=== PATIENT | female | born 1985 | race Caucasian/White ===

== ENCOUNTER 2017-01-06 06:55 | Day surgery (SDC) | payer BC ==
--- NOTE | ~2017-01-06 | OP ---
Record Of Operation [facility] [address] [place]. [address] NAME: KAREN REDDY : 87 STATUS : REG [facility]#: [id number] AGE: 32 ADM/REG DATE : 01/06/17 MR#: [id number] REPORT SERV DATE: 01/06/17 DICTATED BY: HILL MUSE DATE: 01/06/17 REPORT STATUS : Draft TRANSCRIBED BY: BELTRAN DATE: 01/06/17 DATE OF PROCEDURE: 01/06/2017 SERVICE: Otolaryngology. PREOPERATIVE DIAGNOSIS: Chronic tonsillitis. POSTOPERATIVE DIAGNOSIS: Chronic tonsillitis. PROCEDURE: Tonsillectomy. ANESTHESIA: General endotracheal anesthesia. COMPLICATIONS: None. SPECIMEN: 1. Left tonsil. 2. Right tonsil. FINDINGS: The patient had 3+ cryptic tonsils. STATEMENT OF MEDICAL NECESSITY: This is a 32-year-old female with history of recurrent acute strep tonsillitis and chronic tonsillitis. Recommended tonsillectomy. STATEMENT OF OPERATION: The patient was brought to the operating room in supine position, transferred over to the operating table. All pressure points were padded, and general endotracheal anesthesia was established. The patient's neck was placed in slight extension using a shoulder roll. Bacitracin ointment was applied to the lips and Afrin instilled in each nostril. A McIvor mouth gag was inserted and locked for retraction tongue and oral cavity. A red rubber catheter was passed through the right naris, brought out of the mouth and locked for the soft palate and uvula. A total of 4 mL of 0.25% plain Marcaine were injected in the peritonsillar space and the parapharyngeal muscles bilaterally. The left tonsil was removed first with the suction cautery followed by the right tonsil. Hemostasis was obtained with suction cautery. The nasopharynx and pharynx were irrigated thoroughly with warm saline. The stomach was suctioned clear of blood and fluid with an orogastric tube. The red rubber catheter and McIvor were removed. The patient was turned back over to Anesthesia, where she awoke, was extubated, and transferred to the PACU in stable condition. PS/BELTRAN Hill Muse MD / [id number] Record Of Operation [place] [id number] [address] NAME: KAREN REDDY : 87 STATUS : REG [facility] PAT#: [id number] AGE: 32 ADM/REG DATE : 01/06/17 MR#: [id number] REPORT SERV DATE: 01/06/17 DICTATED BY: HILL MUSE DATE: 01/06/17 REPORT STATUS : Draft TRANSCRIBED BY: BELTRAN DATE: 01/06/17 CC: MD KENZIE Madrigal MATTHEW J.
[~2017-01-06 06:55] MED LIST: CYMBALTA30 PO; PT DENIES HOME MEDS; [UNRECOGNIZED DRUG - OTHER] PO
[2017-01-06 07:25] LABS: BASOPHILS 0.3 %; BASOPHILS ABSOLUTE 0.02 10/3/uL (0.0-0.16); EOSINOPHILS 6.7 %; EOSINOPHILS ABSOLUTE 0.44 10/3/uL (0.0-0.53); HEMATOCRIT 40.3 % (36.0-48.0); HEMOGLOBIN 14.1 g/dL (12.0-16.0); IMMATURE GRANULOCYTES 0.2 %; IMMATURE GRANULOCYTES ABSOLUTE 0.01 10/3/uL (0.0-0.11); LYMPHOCYTES 36.7 %; LYMPHOCYTES ABSOLUTE 2.41 10/3/uL (0.67-4.30); MANUAL DIFF NO %; MEAN CORPUSCULAR VOLUME 88.6 fL (80-100); MONOCYTES 4.7 %; MONOCYTES ABSOLUTE 0.31 10/3/uL (0.21-1.20); NEUTROPHILS 51.4 %; NEUTROPHILS ABSOLUTE 3.38 10/3/uL (2.02-8.40); PLATELET COUNT 314 10/3/uL (150-400); RBC DISTRIBUTION WIDTH 12.4 % (12.0-16.0); RED CELL COUNT 4.55 10/6/uL (4.0-5.6); WHITE BLOOD CELLS 6.6 10/3/uL (4.5-10.5)
[2017-01-06 07:36] LABS: BUN (BLOOD UREA NITROGEN) 12 MG/DL (6-23); CALCIUM, SERUM 8.7 MG/DL (8.5-10.4); CHLORIDE, SERUM 108 MMOL/L (96-112); CO2 (CARBON DIOXIDE) 29 MMOL/L (24-34); CREATININE 0.56 MG/DL (0.55-1.02); GFR AFRICAN AMERICAN 144 ML/MIN (>=60); GFR NON AFRICAN AMERICAN 124 ML/MIN (>=60); GLUCOSE, SERUM 103 MG/DL (60-99); SODIUM, SERUM 141 MMOL/L (135-148)
== END 2017-01-06 11:58 | disposition home or self-care (01) ==
LOC: SDC 06:55
PROVIDERS: Otolaryngology
PROC: 0CTPXZZ Resection of Tonsils, External Approach (ICD-10-PCS; principal; 2017-01-06 08:00)
DX: J35.1 Hypertrophy of tonsils (principal); J35.01 Chronic tonsillitis; J45.909 Unspecified asthma, uncomplicated; G43.909 Migraine, unspecified, not intractable, without status migrainosus; Z88.0 Allergy status to penicillin; Z91.040 Latex allergy status
CPT/HCPCS: 80048; 84703; 85025; 88304; 93005; A9270-GY; J1170; J2250; J2405; J2550; J3010